=== PATIENT | female | born 1975 | race Caucasian/White ===

== ENCOUNTER → 2017-03-21 | Outpatient (CLI) | payer BC ==
[~2017-03-21] MED LIST: BUPR-79 PO; FERR325T51 PO; LAMO100T16 PO; PREN1TAB29 PO
[2017-03-21 14:30] LABS: URINE APPEARANCE CLOUDY (CLEAR); URINE BILIRUBIN NEG (NEG); URINE COLOR YELLOW; URINE EPITHELIAL CELL AUTO >30 /lpf (0-5); URINE NITRITE NEG (NEG); URINE PH 5.5 (4.5-7.5); URINE SPECIFIC GRAVITY 1.027 (1.000-1.030); UROBILINOGEN NEG (NEG)
[2017-03-21 14:32] LABS: MANUAL MICROSCOPIC REQUIRED? NO; REVIEW REQ? NO
== END | disposition home or self-care (01) ==
LOC: C.LABSPEC 13:49
PROVIDERS: ATTEND Obstetrics & Gynecology
DX: O09.521 Supervision of elderly multigravida, first trimester (principal)

== ENCOUNTER → 2017-03-22 | Outpatient (CLI) | payer BC ==
[2017-03-24 04:29] LABS: CHLAMYDIA TRACH RNA*** NOT DETECTED (NOT DETECTED); GC (NEIS GONORRHOEAE)RNA** NOT DETECTED (NOT DETECTED)
== END | disposition home or self-care (01) ==
LOC: C.LABSPEC 11:04
PROVIDERS: ATTEND Obstetrics & Gynecology
DX: O09.522 Supervision of elderly multigravida, second trimester (principal)

== ENCOUNTER → 2017-04-26 | Outpatient (CLI) | payer BC ==
[2017-04-26 17:45] LABS: GTGD 50 Grams
[2017-05-01 06:16] LABS: AFP CONCENTRATION 27.9 NG/ML; AFP MULTIPLE OF MEDIAN 0.69; AFPTS GESTATIONAL AGE 18.1 WEEKS; AFPTS INSULIN DEP DIABETIC? NO; AFPTS MATERNAL WT 167 LBS; ALPHA-FETOPROTEIN RACE CAUCASIAN=W; CIGARETTE SMOKER? NOT PROVIDED; HISTORY OF NTD NO; REPEAT SAMPLE? NO
== END | disposition home or self-care (01) ==
LOC: C.LAB1850 14:16
PROVIDERS: ATTEND Obstetrics & Gynecology
DX: O09.522 Supervision of elderly multigravida, second trimester (principal)

== ENCOUNTER → 2017-07-23 | Outpatient (CLI) | payer OTHER ==
[2017-07-23 15:53] LABS: HEMATOCRIT 30.7 % (37-47); HEMOGLOBIN 10.3 g/dL (12.0-16.0)
== END | disposition home or self-care (01) ==
LOC: C.LAB1850 13:58
PROVIDERS: ATTEND Obstetrics & Gynecology
DX: O09.523 Supervision of elderly multigravida, third trimester (principal); Z3A.00 Weeks of gestation of pregnancy not specified

== ENCOUNTER → 2017-08-10 | Outpatient (CLI) | payer OTHER | END | disposition home or self-care (01) | LOC: C.LABSPEC 17:16 | PROVIDERS: ATTEND Obstetrics & Gynecology | DX: N39.0 Urinary tract infection, site not specified (principal) ==

== ENCOUNTER 2017-09-19 23:28 | Inpatient (IN) | payer OTHER ==
[~2017-09-19] VITALS: Ht 167.6 cm; Wt 85.5 kg
[2017-09-19] MEDS ORDERED: LACTATED RINGER'S 1000ML 1,000 ML IV PRN (23:52)
[2017-09-19] MEDS ORDERED: LACTATED RINGER'S 1000ML 1,000 ML IV SCH (23:52)
[2017-09-20] MEDS ORDERED: PENICILLIN G POTASSIUM IV 6 MU in DEXTROSE 5% 250ML 250 ML IV ONE ×2
[2017-09-20] MEDS ORDERED: PENICILLIN G POTASSIUM IV 3 MU in DEXTROSE 5% 100ML 100 ML IV PRN ×2
[2017-09-20 00:18] VITALS: Ht 167.6 cm; Wt 85.5 kg
[2017-09-20 00:28] LABS: HEMATOCRIT 31.7 % (37-47); HEMOGLOBIN 10.3 g/dL (12.0-16.0); MEAN CELL VOLUME 79.8 fL (80-100); MEAN CORPUSCULAR HEMOGLOBIN 25.9 pg (25-34); MEAN CORPUSCULAR HGB CONC 32.5 g/dl (32-36); MEAN PLATELET VOLUME 10.9 fL (7.4-10.4); PLATELET COUNT 185 K/uL (130-400); RED CELL DISTRIBUTION WIDTH CV 13.7 % (11.5-14.5); RED CELL DISTRIBUTION WIDTH SD 39.6 fL (36.4-46.3); WHITE BLOOD COUNT 11.96 K/uL (4.8-10.8)
[2017-09-20] MEDS ORDERED: EpHEDrine SULFATE INJ 50 MG/ML AMP ONE (00:36)
[2017-09-20] MEDS ORDERED: BUPIVACAINE 0.25% 30 ML VIAL ONE (00:36)
[2017-09-20] MEDS ORDERED: FENTANYL CITRATE INJ 50 MCG/1 ML 2 ML VIAL ONE (00:37)
[2017-09-20] MEDS ORDERED: FENTANYL 2MCG/ML ROPIV 1.25MG/ML 100ML BAG ONE (00:37)
[2017-09-20] MEDS ORDERED: OXYTOCIN 30 UNITS/500ML NSS IV ONE (01:19)
[2017-09-20] MEDS ORDERED: NALOXONE HCL INJ 1 MG in SODIUM CHLORIDE 0.9% 1000ML 1,000 ML IV PRN (01:26)
[2017-09-20] MEDS ORDERED: LACTATED RINGER'S 1000ML 500 ML IV PRN (01:26)
[2017-09-20] MEDS ORDERED: EpHEDrine SULFATE INJ 50 MG/ML AMP IV PRN (01:30)
[2017-09-20] MEDS ORDERED: DiphenhydrAMINE HCL 50 MG/ML VIAL IV PRN ×2 (01:30→02:45)
[2017-09-20] MEDS ORDERED: FENTANYL 2MCG/ML ROPIV 1.25MG/ML 100ML BAG EPI PRN (01:30)
[2017-09-20] MEDS ORDERED: NALOXONE HCL INJ 0.4 MG/1 ML VIAL/CARP IV PRN (01:30)
[2017-09-20] MEDS ORDERED: NALBUPHINE HCL INJ 10 MG/ML AMP IV PRN (01:30)
[2017-09-20] MEDS ORDERED: OXYCODONE/ACETAMINOPHEN 5-325 TAB PO PRN (02:00)
[2017-09-20] MEDS ORDERED: LANOLIN OINT EXT PRN (02:00)
[2017-09-20] MEDS ORDERED: OXYTOCIN 30 UNITS/500ML NSS IV PRN (02:00)
[2017-09-20] MEDS ORDERED: HYDROCORTISONE ACETATE 25 MG SUPP PR PRN (02:00)
[2017-09-20] MEDS ORDERED: BENZOCAINE 20% AER SPR 82.5 GM CAN EXT PRN (02:00)
[2017-09-20] MEDS ORDERED: SUPERCREAM 0.870 % 15GM JAR EXT PRN (02:00)
--- NOTE | 2017-09-20 02:16 | Anesthesia Procedure Note ---
Anesthesia Epidural Removal Nt Date & Time September 20, 2017 at 02:16 Vital Signs Pain Intensity: 10.0 Notes Mental Status: alert / awake / arousable, participated in evaluation Nausea / Vomiting: adequately controlled Pain: adequately controlled Airway Patency, RR, SpO2: stable & adequate BP & HR: stable & adequate Hydration State: stable & adequate Neuraxial Anesthesia: was administered Anesthetic Complications: no major complications apparent, pt satisfied with anesthetic care Epidural: removed without complications, with tip intact
[2017-09-20] MEDS ORDERED: DiphenhydrAMINE HCL 50 MG/ML VIAL IV STA (02:32)
--- NOTE | 2017-09-20 02:57 | DELIVERY SUMMARY ---
DATE OF OPERATION: 09/20/2017 PREDELIVERY DIAGNOSES: 1. A 42-year-old G2, P1-0-0-1 at 39 weeks 0 days. 2. Spontaneous labor with spontaneous rupture of membranes. 3. Group B strep positive. 4. Advanced maternal age. POSTDELIVERY DIAGNOSES: 1. A 42-year-old G2, P1-0-0-1 at 39 weeks 0 days. 2. Spontaneous labor with spontaneous rupture of membranes. 3. Group B strep positive. 4. Advanced maternal age. PROCEDURES: Spontaneous vaginal delivery and repair of first degree perineal laceration. FINDINGS: Viable female with Apgars 8 and 9, weight pending. Please see nursery records. ESTIMATED BLOOD LOSS: 300 mL. COMPLICATIONS: None. DESCRIPTION OF DELIVERY: The patient progressed into spontaneous labor and received an epidural and progressed to complete. She then pushed twice and spontaneously vaginally delivered a viable female from the cephalic presentation. The head delivered in right occiput anterior position. No nuchal cord was noted. The anterior shoulder delivered, followed by the posterior shoulder, followed by the body. The baby was placed on mother's abdomen and a spontaneous cry was heard. The cord was doubly clamped and cut. Cord blood was obtained. The placenta was then delivered spontaneously intact with the 3-vessel cord. The uterus and vagina were cleared off all clots and debris. Pitocin was given. The cervix, vagina, and perineum were inspected and a first degree perineal laceration was noted and repaired in standard fashion with 3-0 Vicryl. Excellent hemostasis was observed. Sponge, instrument, and needle counts were correct at the conclusion of the delivery x2. The patient and baby tolerated the delivery well and are recovering in stable and good condition in the room. I attest to the content of the Intraoperative Record and any orders documented therein. Any exception s are noted below.
[2017-09-20] MEDS ORDERED: HYDR1AER23 PR (03:37)
[2017-09-20] MEDS ORDERED: METH500T3 (03:38)
[2017-09-20] MEDS ORDERED: SENN-61 PO (03:38)
[2017-09-20] MEDS ORDERED: RANI150T3 PO (03:39)
[2017-09-20 08:00] VITALS: BP 112/58; PULSE 65; TEMP 36.5
[2017-09-20] MEDS: DOCUSATE SODIUM 100 MG CAP PO SCH ×2 (08:19→19:55)
[2017-09-20] MEDS: IBUPROFEN 600 MG TAB PO PRN ×4 (08:48→19:57)
[2017-09-20] MEDS: PRENATAL VITAMIN TAB PO SCH (10:03)
[2017-09-20] MEDS: BuPROPion SR 150 MG TABCR PO SCH (10:03)
[2017-09-20 11:42] VITALS: BP 122/66; PULSE 72; TEMP 36.8
[2017-09-20 16:20] VITALS: BP 117/74; PULSE 64; TEMP 36.5
[2017-09-20] MEDS: ACETAMINOPHEN 325 MG TAB PO PRN (18:43)
[2017-09-20 19:45] VITALS: BP 122/74; PULSE 69; TEMP 36.4
[2017-09-21] VITALS: BP 110/70; PULSE 71; TEMP 36.3
[2017-09-21] MEDS: IBUPROFEN 600 MG TAB PO PRN ×4 (00:08→19:52)
--- NOTE | 2017-09-21 06:30 | Progress Note ---
Subjective September 21, 2017. Subjective conversation w/ patient Ambulation: ambulating normally Voiding: no voiding problems Diet Tolerance: Regular Diet Lochia: Moderate Feeding Type: Bottle Feeding Pain: Mild abdominal cramps, improved by analgesia Review of Systems Constitutional: No fever, No chills Respiratory: No shortness of breath Cardiac: No chest pain Abdomen: No nausea, No vomiting Objective Vital Signs Date Time Temp Pulse Resp B/P (MAP) Pulse Ox O2 Delivery O2 Flow Rate FiO2 09/21/17 00:00 36.3 71 16 110/70 (83) Room Air 09/21/17 00:00 Room Air 09/20/17 19:45 36.4 69 18 122/74 (90) Room Air 09/20/17 16:20 Room Air 09/20/17 16:20 36.5 64 18 117/74 (88) Room Air 09/20/17 11:42 36.8 72 20 122/66 (84) Room Air 09/20/17 08:00 36.5 65 18 112/58 (76) Room Air 09/20/17 08:00 Room Air Physical Exam General Appearance: WELL-APPEARING, WD/WN, NO APPARENT DISTRESS Respiratory/Chest: lungs clear, normal breath sounds Cardiovascular: regular rate, rhythm Abdomen: soft Fundus: Firm, Non-Tender, Relation to Umbilicus (1 below u) Extremities: no pedal edema, no calf tenderness Laboratory Results Last 24 Hours Test 09/21/17 04:44 Assessment and Plan Post- Day#: 1 Continue Routine Care: 42F s/p NVD day 1 - O+, Rubella Immune, GBS +ve - pt doing well clinically - Vital signs reviewed and WNL - Encourage ambulation, monitor and control pain with Motrin PRN - anticipate d/c tomorrow morning given GBS +ve status Resident Physician Supervision Note: I interviewed and examined the patient. Discussed with Dr. Noble and agree with findings and plan as documented in the note. Any exceptions or clarifications are listed here: Routine care, doing well Documented By: Raul Tracy Resident Tracking Resident Involvement: Resident Care Provided Care Provided: OB Delivery
--- NOTE | 2017-09-21 06:43 | Discharge Instructions ---
Discharge Instructions Date of Service September 21, 2017. Admission Reason for Admission: LABOR Discharge Discharge Diagnosis / Problem: Vaginal Delivery Discharge Goals Goal(s): Routine recovery after delivery Medications Continue Dispensed Medications: supercream, dermaplast, tucks, lansinoh Activity Recommendations Activity Limitations: per Instructions/Follow-up section . Instructions / Follow-Up Instructions / Follow-Up ACTIVITY RECOMMENDATIONS: * Gradual return to full activity over the next 2-3 weeks. * No lifting - nothing heavier than baby over the next 2-3 weeks. * Do not engage in vigorous exercise, sexual activity or sports until cleared by your physician. * Do not drive or operate any motorized equipment until cleared by your physician. * You may shower/bathe daily. MEDICATIONS: For discomfort or pain, you may use Acetaminophen (Tylenol), Ibuprofen (Advil), or Naproxen (Aleve) following the package directions. For constipation you may use Colace following the package directions. BREAST CARE: If you are not breast feeding: * Wear a supportive bra 24 hours a day for one to two weeks. * Avoid stimulating your breasts and nipples as much as possible during the first few weeks after delivery. * When taking a shower, have the warm water hit your back, not breasts. * When your breasts feel full, apply ice packs. Usually three to four times a day helps ease the discomfort. * Take a mild pain medication (Tylenol / Motrin) when you are uncomfortable. If breast feeding: * Use breast milk to lubricate nipples. Lansinoh cream may be used for sore nipples. You do not need to remove cream prior to breast feeding. If using a different brand of cream, check the label for directions regarding removal of cream prior to nursing. * Wear a supportive bra. * If having problems with breasts or breast feeding, call a mobile sales consultant or your health care provider. EPISIOTOMY CARE: After delivery, if you have an episiotomy (stitches), the following steps will ease discomfort and aid healing. * For the first 24 hours after delivery, place ice packs next to your episiotomy to help reduce swelling. * After the first 24 hour-period, sitz baths, either portable or in the tub, are suggested. A shower with a shower arm sprayed over the episiotomy may be comforting. * Joanna care should be done after each voiding and bowel movement. Squirt warm water from a plastic bottle over the perineum (region of the body between the anus and urinary opening) and pat dry. * Use Dermoplast to ease discomfort. Shake container. O'Brien directly over the episiotomy. Place a Tucks on a clean sanitary pad next to your episiotomy. SPECIAL CARE INSTRUCTIONS: When you are discharged from the hospital, it is important for you to follow the instructions listed below: * During the first week at home, you should be able to care for yourself and your baby. In addition, the usual light household activities are encouraged. * Limit your activities to the way you feel. Do not try to clean the house or move furniture. Be sensible. * If you actively engage in sports and have done so up until the time of your delivery, you may resume these activities as soon as you feel able. This may take up to one month or even longer. Use good judgment. * Continue to take your vitamins for at least six weeks after the of your baby. * Your diet need not be limited unless you were on a special diet before your delivery. Breast-feeding mothers need around 2500 calories per day and at least 64-80 ounces of fluid per day (8 to 10 glasses). * You should eat foods from the four major food groups. Crash diets or fad diets are to be avoided. Eating lean meats, fresh fruits and vegetables, low-fat dairy products, high fiber foods and a regular exercise program, will help you get back to your pre- weight without putting your health at risk. * Constipation is sometimes a problem after delivery. Take a mild laxative as needed. If breast feeding, Milk of Magnesia is acceptable to use. You may use a suppository or Fleets enema if no episiotomy. * A daily shower or tub bath is suggested. Be sure to thoroughly and gently dry the perineum. * A bloody vaginal discharge will usually continue until around four weeks post . A small amount of bleeding may continue for as long as six weeks. Vaginal discharge changes from the bright red bleeding after delivery to pink then brownish and finally yellowish-pink before becoming white and disappearing. * Bleeding may increase with activity. Your first period may come in 4-8 weeks. If you are breast feeding, your period may be delayed even longer. * Bovill (sex) can begin whenever both you and your partner feel comfortable and do not have any form of genital infection. It is recommended that you wait at least six weeks for internal and external healing to occur. If you have questions, please talk to your health care practitioner. A condom should be used to prevent infection and . * Foreplay, gentle intercourse and lubrication is very important the first several times to prevent pain. A water-based lubricant such as K-Y jelly or Astroglide may be used. * If you have RH negative blood and your baby is RH positive, you will receive RHOGAM by injection prior to discharge. The nurse will give you a card to keep with you that has the date and place that you received RHOGAM after delivery. * During your care, you had a Rubella screen done to check for the presence of rubella antibodies in your blood. If your test was negative, you will receive a Rubella vaccine prior to discharge. This vaccine may cause a fever, soreness at the injection site and flu-like symptoms. If these symptoms persist, notify your health care practitioner. is not advised for one month after a Rubella vaccine. * Verbalizes understanding of car seat law as reviewed with patient nursing. * Car Seat hand-out given and reviewed with patient by nursing. * Shaken baby information reviewed with patient by nursing. Call you doctor if: * Heavy bleeding (saturating several pads an hour) or passing clots the size of your fist. * A fever >101 degrees F (38.3 degrees C) on two occasions four hours apart and /or chills. * Unusual pain in the pelvic or vaginal areas. * "Baby Blues" lasting longer than two weeks. If you have any questions or concerns, call your health care practitioner at . FOLLOW UP VISIT: * Please call the office at to schedule a 6 week examination. It is important you keep this appointment. It is important for you to make arrangements for either yearly or twice yearly check-ups thereafter. Current Hospital Diet Patient's current hospital diet: Regular OB Diet Discharge Diet Recommended Diet: Regular Diet Pending Studies Studies pending at discharge: no Medical Emergencies . Who to Call and When: Medical Emergencies: If at any time you feel your situation is an emergency, please call [phone] immediately. . Non-Emergent Contact Non-Emergency issues call your: Primary Care Provider . . "Provider Documentation" section prepared by Eliel Noble. .
[2017-09-21 08:00] VITALS: BP 106/69; PULSE 59; TEMP 36.7; O2SAT 98
[2017-09-21 08:34] LABS: HEMATOCRIT 30.1 % (37-47); HEMOGLOBIN 9.6 g/dL (12.0-16.0)
[2017-09-21] MEDS: DOCUSATE SODIUM 100 MG CAP PO SCH ×2 (09:32→19:52)
[2017-09-21] MEDS: PRENATAL VITAMIN TAB PO SCH (09:33)
[2017-09-21] MEDS: BuPROPion SR 150 MG TABCR PO SCH (09:36)
[2017-09-21 15:35] VITALS: BP 111/64; PULSE 62; TEMP 36.4; O2SAT 96
[2017-09-21] MEDS ORDERED: BISACODYL 5 MG TABEC PO SCH (20:00)
[2017-09-21] MEDS: ACETAMINOPHEN 325 MG TAB PO PRN (22:48)
[2017-09-21 23:10] VITALS: BP 113/71; PULSE 63; TEMP 36.6; O2SAT 97
[2017-09-22] MEDS: IBUPROFEN 600 MG TAB PO PRN ×2 (01:27→06:17)
--- NOTE | 2017-09-22 06:39 | Progress Note ---
Subjective September 22, 2017. Subjective conversation w/ patient, physical exam Ambulation: ambulating normally Voiding: no voiding problems Diet Tolerance: Regular Diet Lochia: Small Feeding Type: Bottle Feeding Pain: denies pain issues Objective Vital Signs Date Time Temp Pulse Resp B/P (MAP) Pulse Ox O2 Delivery O2 Flow Rate FiO2 09/21/17 23:10 36.6 63 16 113/71 (85) 97 Room Air 09/21/17 23:10 Room Air 09/21/17 15:35 96 Room Air 09/21/17 15:35 36.4 62 16 111/64 (80) 96 Room Air 09/21/17 08:00 36.7 59 13 106/69 (81) 98 Room Air Physical Exam General Appearance: WELL-APPEARING, WD/WN, NO APPARENT DISTRESS Respiratory/Chest: lungs clear Cardiovascular: regular rate, rhythm Abdomen: non tender, soft Fundus: Firm, Relation to Umbilicus (2 down) Extremities: non-tender Laboratory Results Last 24 Hours Test 09/21/17 08:02 Hemoglobin 9.6 g/dL Hematocrit 30.1 % Assessment and Plan Post- Day#: 2 Continue Routine Care: stable routine care. f/u 6 wks pp, d/c home. instructions reviewed.
[2017-09-22 07:45] VITALS: BP 105/68; PULSE 56; TEMP 36.5
[2017-09-22] MEDS: PRENATAL VITAMIN TAB PO SCH (08:26)
[2017-09-22] MEDS: DOCUSATE SODIUM 100 MG CAP PO SCH (08:26)
[2017-09-22] MEDS: BuPROPion SR 150 MG TABCR PO SCH (08:26)
[2017-09-22 09:58] VITALS: BP_DIAS 68; PULSE 56; TEMP 36.5
== END 2017-09-22 09:55 | disposition home or self-care (01) | DRG 775 ==
LOC: C.OPB 23:28 → C.LD 23:28 → C.OPB 23:55 → C.LD 23:55 → C.OBG 09-20 14:54
PROVIDERS: ADMIT Obstetrics & Gynecology; ATTEND Obstetrics & Gynecology
PROC: 0HQ9XZZ Repair Perineum Skin, External Approach (ICD-10-PCS; principal; 2017-09-20)
PROC: 10E0XZZ Delivery of Products of Conception, External Approach (ICD-10-PCS; principal; 2017-09-20)
DX: O70.0 First degree perineal laceration during delivery (principal); O09.523 Supervision of elderly multigravida, third trimester; Z37.0 Single live birth; O99.824 Streptococcus B carrier state complicating childbirth; Z3A.39 39 weeks gestation of pregnancy